=== PATIENT | female | born 1975 | race Two or more races ===

== ENCOUNTER 2023-12-16 15:51 | Emergency (ER) | payer OTHER ==
[~2023-12-16] VITALS: Ht 175.3 cm; Wt 80.9 kg
[2023-12-16 15:55] VITALS: TEMP 98.6
[2023-12-16 16:51] LABS: BASOPHILS % (AUTO) 0.8 % (0.0-2.0); EOSINOPHILS % (AUTO) 0.5 % (1.0-6.0); HEMATOCRIT 41.5 % (36-46); HEMOGLOBIN 13.9 g/dL (12.0-16.0); LYMPHOCYTES # (AUTO) 1.7 K/uL (1.0-4.8); MEAN CORPUSCULAR HEMOGLOBIN 31.6 pg (26.0-34.0); MEAN CORPUSCULAR HGB CONC 33.4 G/dL (31.0-37.0); MEAN CORPUSCULAR VOLUME 95 fL (80-100); MONOCYTES # (AUTO) 0.5 K/uL (0.1-1.0); MONOCYTES % (AUTO) 5.2 % (2.0-9.0); NEUTROPHILS # (AUTO) 6.7 K/uL (1.8-7.7); NEUTROPHILS % (AUTO) 74.5 % (40.0-70.0); PLATELET COUNT (AUTO) 281 K/uL (150-450); RED BLOOD CELL COUNT(AUTO) 4.38 MIL/uL (4.00-5.20); RED CELL DISTRIBUTION WIDTH 13.9 % (11.5-14.5); WHITE BLOOD COUNT (AUTO) 8.9 K/uL (4.5-11.0)
[2023-12-16 17:00] LABS: ANION GAP 8 mmol/L (8-16); CALCIUM, TOTAL 8.9 mg/dL (8.8-10.5); CARBON DIOXIDE 27 mmol/L (22-29); CHLORIDE 102 mmol/L (98-107); CREATININE 0.58 mg/dL (0.60-1.30); GLOMERULAR FILTR. RATE CALC > 60 mL/min (>60); GLUCOSE,RANDOM 89 mg/dL (70-110); POTASSIUM 3.9 mmol/L (3.5-5.1); SODIUM SERUM 137 mmol/L (136-145); UREA NITROGEN, BLOOD 10 mg/dL (7-18)
[2023-12-16] MEDS ORDERED: TRAM50TA5 PO (19:53)
[2023-12-16] MEDS: IBUPROFEN 600 MG TABLET PO ONE (19:59)
[2023-12-16] MEDS: TraMADol HCL 50 MG TABLET PO ONE (20:00)
[2023-12-16] MEDS: ACETAMINOPHEN 500 MG TABLET PO ONE (20:00)
[2023-12-16] MEDS ORDERED: VALA500T42 PO (20:01)
[2023-12-16] MEDS ORDERED: PRED-554 PO (20:01)
[2023-12-16] MEDS ORDERED: IBUP-1554 PO (20:01)
[2023-12-16] MEDS ORDERED: CEPH-558 PO (20:01)
[2023-12-16] MEDS ORDERED: CORTSUSP AS (20:01)
[2023-12-16 20:31] VITALS: BP 138/99; PULSE 100; RESP 15
== END 2023-12-16 20:35 | disposition home or self-care (01) ==
LOC: EMS 15:55
DX: G51.0 Bell's palsy (principal); H60.92 Unspecified otitis externa, left ear; H66.92 Otitis media, unspecified, left ear
CPT/HCPCS: 70450; 80048; 84703; 85025; 99284